=== PATIENT | female | born 2000 | race Two or more races ===

== ENCOUNTER 2021-12-31 12:20 | Emergency (ER) | payer BC ==
[~2021-12-31] VITALS: Ht 165.1 cm; Wt 63.0 kg
[2021-12-31 13:34] LABS: BILIRUBIN,URINE NEGATIVE (NEGATIVE); COLOR,URINE YELLOW (YELLOW); LEUKOCYTE ESTERASE ,URINE NEGATIVE (NEGATIVE); NITRITE, URINE NEGATIVE (NEGATIVE); PROTEIN,URINE NEGATIVE (NEGATIVE); UGLUCOSE NEGATIVE (NEGATIVE); UROBILINOGEN,URINE 0.2 EU/dL (0.2)
[2021-12-31] MEDS ORDERED: MAG HYDROX/AL HYDROX/SIMETH 30 ML UDC ONE (13:39)
[2021-12-31] MEDS ORDERED: LIDOCAINE VISCOUS 2% UD 15 ML UDC ONE (13:39)
[2021-12-31] MEDS ORDERED: ONDANSETRON HCL/PF 4 MG/2 ML VIAL ONE (13:39)
[2021-12-31] MEDS ORDERED: FAMOTIDINE/PF INJ 20 MG/2 ML VIAL IV ONE (13:40)
[2021-12-31 13:41] LABS: BASOPHILS % (AUTO) 0.6 % (0.0-2.0); EOSINOPHILS % (AUTO) 1.3 % (0.0-6.0); HEMATOCRIT 38 % (33-45); HEMOGLOBIN 12.8 g/dL (11.5-14.8); LYMPHOCYTES # (AUTO) 1.6 K/uL (0.8-4.8); LYMPHOCYTES % (AUTO) 27.8 % (20.0-44.0); MEAN CORPUSCULAR HGB CONC 33 g/dl (31.0-36.0); MEAN CORPUSCULAR VOLUME 78 fL (82-100); MONOCYTES # (AUTO) 0.4 K/uL (0.1-1.30); MONOCYTES % (AUTO) 6.7 % (2.0-12.0); NEUTROPHILS # (AUTO) 3.6 K/uL (1.8-8.9); NEUTROPHILS % (AUTO) 63.6 % (43.0-81.0); PLATELET COUNT (AUTO) 208 K/uL (150-450); RED BLOOD CELL COUNT(AUTO) 4.94 MIL/uL (4.0-5.2); WHITE BLOOD COUNT (AUTO) 5.6 K/uL (4.3-11.0)
[2021-12-31 13:54] LABS: ALBUMIN 4.1 g/dL (3.4-5.0); BILIRUBIN,DIRECT 0.1 mg/dL (0.0-0.2); BILIRUBIN,TOTAL 0.3 mg/dL (0.2-1.0); POTASSIUM 3.8 mmol/L (3.5-5.1); TOTAL PROTEIN, SERUM 7.5 g/dL (6.4-8.2)
[2021-12-31] MEDS: IV NS 0.9% 1,000 ML BAG IV ONE (13:55)
[2021-12-31] MEDS: LIDOCAINE VISCOUS 2% UD 15 ML UDC MM ONE (13:55)
[2021-12-31] MEDS: FAMOTIDINE/PF INJ 20 MG/2 ML VIAL IV ONE (13:55)
[2021-12-31] MEDS: ONDANSETRON HCL/PF 4 MG/2 ML VIAL IVP ONE (13:55)
[2021-12-31] MEDS: MAG HYDROX/AL HYDROX/SIMETH 30 ML UDC PO ONE (13:55)
[2021-12-31 14:01] LABS: CALCIUM, SERUM 9.3 mg/dL (8.5-10.1)
[2021-12-31] MEDS ORDERED: FAMO-131 PO (14:47)
[2021-12-31] MEDS ORDERED: ONDA4TAB5 PO (14:47)
[2021-12-31] MEDS ORDERED: POLY17PO4 PO (15:55)
[2021-12-31] MEDS ORDERED: DICYCLOMINE HCL INJ 20 MG/2 ML AMPUL IM ONE (16:07)
[2021-12-31] MEDS: DICYCLOMINE HCL INJ 20 MG/2 ML AMPUL IM ONE (16:25)
--- NOTE | 2021-12-31 17:00 | NUR ---
IV removed. Catheter intact and site benign. Pressure and 4x4 applied to site. No bleeding noted. ID band removed. Patient discharged to home in stable condition. Written and verbal after care instructions given. Patient verbalizes understanding of instruction. patient education reinforced.
[2021-12-31 17:01] VITALS: BP 116/72
== END 2021-12-31 16:35 | disposition home or self-care (01) ==
LOC: ER 12:26
DX: R10.13 Epigastric pain (principal); R10.11 Right upper quadrant pain; F32.A Depression, unspecified; Z60.2 Problems related to living alone; Z79.899 Other long term (current) drug therapy
CPT/HCPCS: 36415; 76700; 80048; 80076; 81003; 83690; 84703; 85025; 96361; 96372; 96374; 96375; 99284; J0500; J2405; J3490; J7030

== ENCOUNTER 2023-05-31 22:43 | Emergency (ER) | payer BC ==
[~2023-05-31] VITALS: Ht 165.1 cm; Wt 68.0 kg
[~2023-05-31 22:43] MED LIST: FAMO-131 PO; ONDA4TAB5 PO; POLY17PO4 PO
[2023-05-31 23:40] VITALS: BP 110/70; TEMP 98.1; O2SAT 98
[2023-06-01] MEDS ORDERED: LIDOCAINE 0.5%-EPI 1:200,000 50 ML VIAL ONE (00:07)
[2023-06-01] MEDS ORDERED: LIDOCAINE 1%-EPI 1:100,000 50 ML VIAL IJ ONE (00:30)
== END 2023-06-01 01:11 | disposition home or self-care (01) ==
LOC: ER 22:46
DX: S51.811A Laceration without foreign body of right forearm, initial encounter (principal); F32.A Depression, unspecified; F41.9 Anxiety disorder, unspecified; F17.200 Nicotine dependence, unspecified, uncomplicated; Z79.899 Other long term (current) drug therapy; Z60.2 Problems related to living alone; X78.8XXA Intentional self-harm by other sharp object, initial encounter; Y93.89 Activity, other specified; Y92.89 Other specified places as the place of occurrence of the external cause; Y99.8 Other external cause status
CPT/HCPCS: 99282; 12002; A6403; J3490 ×2